=== PATIENT | female | born 1980 | race Caucasian/White ===

== ENCOUNTER 2016-10-30 19:19 | Emergency (ER) | payer SELFPAY ==
--- NOTE | 2016-10-30 20:13 | ED PDOC ---
HPI: Psych/Substance Abuse Time Seen by Provider: 10/30/16 19:32 Chief Complaint (Nursing): Psychiatric Evaluation Chief Complaint (Provider): bizarre behavior ED Caveat: Other (possible psychosis) Additional Complaint(s): Pt reports she is fine and does not know why she is here. Denies suicidal or homicidal ideation. History obtained from EMS run sheet and triage nurse report from EMS. Per EMS she was walking in and out of traffic, not oriented, standing in the middle of street almost got hit by a car. [employer] received several calls of pt zigzagging through traffic and disoriented, and then they were flagged down by another bystander who pointed out that she was pulling on door handles of different parked cars, which was witnessed by [employer] , who initiated questioning of the patient. Pt reports that she is a tourist visiting from [facility]. When asked more specifics of her trip, such as when she was planning to go back, she said she didn't know and that she didn't have plans for that yet. When asked when she arrived she reports "Why do you need to know that? What does that matter?" Offers that she flew to [place] from [facility], that she is staying in hotels and that currently her luggage is in a locker in a hostel in [place], where she is intending to go back to [facility] to check into a different hotel or hostel. She has not determined which hotel or hostel she will be staying [facility]. She denies the reports of EMS/[employer] above. Past Medical History Reviewed: Nursing Documentation Vital Signs: Last Vital Signs Temp 98.7 F 10/30/16 19:22 Pulse 77 10/30/16 19:22 Resp 18 10/30/16 19:22 BP 117/76 10/30/16 19:22 Pulse Ox 100 10/30/16 19:22 - Medical History Other PMH: Denies chronic illnesses - Surgical History Surgical History: No Surg Hx - Family History Family History: States: No Known Family Hx - Social History Current smoker - smoking cessation education provided: No Alcohol: None Drugs: Denies - Allergies Allergies/Adverse Reactions: Allergies Allergy/AdvReac Type Severity Reaction Status Date / Time Sulfa (Sulfonamide Allergy RASH Verified 10/30/16 19:22 Antibiotics) tetracycline Allergy RASH Verified 10/30/16 19:22 Review of Systems ROS Statement: Except As Marked, All Systems Reviewed And Found Negative Respiratory: Positive for: Cough (reports due to dust allergy) Neurological: Negative for: Numbness, Headache Psych: Negative for: Anxiety, Depression, Suicidal ideation Physical Exam - Reviewed Nursing Documentation Reviewed: Yes Vital Signs Reviewed: Yes - Physical Exam Appears: Positive for: No Acute Distress (texting on phone on initial exam) Skin: Positive for: Warm, Dry Eye Exam: Positive for: EOMI, PERRL ENT: Positive for: Normal ENT Inspection Neck: Positive for: Painless ROM, Trachea Midline Cardiovascular/Chest: Positive for: Regular Rate, Rhythm. Negative for: Edema Respiratory: Negative for: Accessory Muscle Use, Respiratory Distress Gastrointestinal/Abdominal: Positive for: Soft. Negative for: Tenderness Back: Positive for: Normal Inspection Extremity: Positive for: Normal ROM. Negative for: Deformity Neurologic/Psych: Positive for: Alert, vice squad police officer II-XII (grossly intact), Oriented (x2 ), Mood/Affect (anxious, forgetful). Negative for: Motor/Sensory Deficits - Laboratory Results Result Diagrams: 10/30/16 20:46 10/30/16 20:46 - ECG O2 Sat by Pulse Oximetry: 100 - Progress ED Course And Treament: 20:00 Due to reported activity by [employer] and EMS, there is concern for patient's physical and mental safety. Pt continues to report that she wasn't doing any of the reported activity. However, she also then forgets these reports and repeatedly asks again why she is here. I have had to tell her 3 times within the first 30 minutes of her arrival here why she is being evaluated. At this time I do not feel it is appropriate to allow patient to leave without medical and psychiatric evaluation. Pt refusing to cooperative with workup and attempted to leave ER. Multiple attempts to allow patient to comply with changing into gown, stay in room, and allow tests to be down. Required security involvement for a short time to comply. [id number] No clinically significant lab abnormalities. EXAM: CT Head Without Intravenous Contrast CLINICAL HISTORY: 36 years old, female; Signs and symptoms; Altered mental status/memory loss; Confusion or disorientation; Additional info: Bizarre behavior unknown onset TECHNIQUE: Axial computed tomography images of the head/brain without intravenous contrast. This CT exam was performed using one or more of the following dose reduction techniques: automated exposure control, adjustment of the mA and/or kV according to patient size, and/or use of iterative reconstruction technique. Coronal and sagittal reformatted images were created and reviewed. COMPARISON: No relevant prior studies available. FINDINGS: Brain: Unremarkable. No hemorrhage. No significant white matter disease. No edema. Ventricles: Unremarkable. No ventriculomegaly. Bones/joints: Unremarkable. No acute fracture. Soft tissues: Unremarkable. Sinuses: Unremarkable as visualized. No acute sinusitis. Mastoid air cells: Unremarkable as visualized. No mastoid effusion. IMPRESSION: No evidence of acute intracranial pathology. Thank you for allowing us to participate in the care of your patient. Dictated and Authenticated by: Juanjo Cerna MD 10/30/2016 10:25 PM Eastern Time ([place] & [place]) Evaluated by SARAH Villalobos who d/w Psych and pt clear for DC. Discussed with patient findings. Encouraged patient to maintain nourishment and hydration and also advised pt to follow up at clinic and rter for any worrisome symptoms. Mental health resources were given to patient by SARAH Villalobos. Asked patient how she intends to return to [place] and she replies "I will find my own way." Disposition - Clinical Impression Clinical Impression: Bizarre behavior Counseled Patient/Family Regarding: Studies Performed, Diagnosis, Need For Followup - Disposition Referrals: [facility] [Outside] [facility] [Outside] [facility] [Outside] Disposition: Routine/Home Disposition Time: 22:00 Condition: STABLE Instructions: Stress (ED)
[2016-10-30 20:57] LABS: BASO % 0.6 % (0.0-2.0); EOS # 0.1 K/uL (0.0-0.7); HEMOGLOBIN 11.6 g/dL (12.0-16.0); LYMPH # 1.8 K/uL (1.0-4.3); MEAN CELL VOLUME 84.5 fl (81.0-99.0); MEAN CORPUSCULAR HGB CONC 33.2 g/dL (33.0-37.0); MEAN PLATELET VOLUME 7.9 fl (7.2-11.7); MONO # 0.5 K/uL (0.0-0.8); NEUT # 5.6 K/uL (1.8-7.0); NEUT % 69.4 % (50.0-75.0); RBC 4.15 Mil/uL (3.80-5.20); RED CELL DISTRIBUTION WIDTH 14.1 % (11.5-14.5)
[2016-10-30 21:08] LABS: ALB/GLOB RATIO 1.5 (1.0-2.1); ALBUMIN 4.9 g/dL (3.5-5.0); ALT/SGPT 34 U/L (9-52); AST/SGOT 29 U/L (14-36); BLOOD UREA NITROGEN 12 mg/dl (7-17); CALCIUM 9.7 mg/dL (8.4-10.2); GFR AFRICAN-AMERICAN > 60; GFR NON-AFRICAN AMERICAN > 60
[2016-10-30 21:09] LABS: ACETAMINOPHEN < 10.0 ug/ml (10.0-30.0); SALICYLATE < 1.0 mg/dl
[2016-10-30 23:25] LABS: BARBITURATES, UR NEGATIVE (NEGATIVE); BENZODIAZEPINES, UR NEGATIVE (NEGATIVE); OPIATES, UR NEGATIVE (NEGATIVE); PHENCYCLIDINE, UR NEGATIVE (NEGATIVE)
[2016-10-30 23:33] VITALS: BP 122/70; PULSE 68; RESP 16; TEMP 98.9; O2SAT 98
--- NOTE | 2016-10-31 10:12 | CT ---
PROCEDURE: CT HEAD WITHOUT CONTRAST. HISTORY: bizarre behavior unknown onset COMPARISON: None available. TECHNIQUE: Axial computed tomography images were obtained through the head/brain without intravenous contrast. Radiation dose: Total exam DLP = 830.47 mGy-cm. This CT exam was performed using one or more of the following dose reduction techniques: Automated exposure control, adjustment of the mA and/or kV according to patient size, and/or use of iterative reconstruction technique. FINDINGS: HEMORRHAGE: No intracranial hemorrhage. BRAIN: No mass effect or edema. No significant atrophy or chronic microvascular ischemic changes. VENTRICLES: Unremarkable. No hydrocephalus. CALVARIUM: Unremarkable. PARANASAL SINUSES: Unremarkable as visualized. No significant inflammatory changes. MASTOID AIR CELLS: Unremarkable as visualized. No inflammatory changes. OTHER FINDINGS: None. IMPRESSION: No CT evidence of acute intracranial hemorrhage or acute territorial infarct. Acute infarction may be CT occult within first 24 hours. If a focal deficit persists, consider followup CT or MRI for further evaluation. Please note that this report is in general agreement with the preliminary report provided by [facility].
== END 2016-10-30 23:15 | disposition home or self-care (01) ==
LOC: H.ER 19:19
DX: F43.0 Acute stress reaction (principal)
CPT/HCPCS: 70450; 80053; 82948; 83735; 84100; 84443; 84703; 85025; 99284; G0480